=== PATIENT | female | born 1950 | race African-American/Black ===

== ENCOUNTER → 2016-12-11 | Outpatient (CLI) | payer OTHER ==
[~2016-12-11] MED LIST: ALLOPURINOL 10100 M1 PO; APAP/CODEINE ELI5 M1 OR; ASPIRIN EC81 M1 PO; CIPROFLOXACIN500 M1 PO; GLUCOPHAGE850 MG PO; LOSARTAN POTASS50 MG PO; SYNTHROID100 MCG; VITAMIN D-32000 UNIT PO; ZOCOR 20 MG TAB20 M1 PO; [UNRECOGNIZED DRUG - REMARK]
== END ==
LOC: BC 08:25
DX: R92.0 Mammographic microcalcification found on diagnostic imaging of breast (principal)

== ENCOUNTER → 2016-12-19 | Outpatient (CLI) | payer OTHER ==
--- NOTE | ~2016-12-19 | S ---
[facility] [address] SURGICAL PATH RPT PROCEDURE Name: SAMI CASTRO Room #: REG [facility].#: [id number] Admission: 12/19/16 Date of : 46 Discharge: Report #: [id number] Path Case #: [id number] PATHOLOGY REPORT COLLECTION DATE: 12/19/2016 RECEIVED DATE: 12/19/2016 SUBMITTING PHYS: Dr. Thomas Ambrocio OTHER PHYS: Dr. Robby Call SPECIMEN(S) RECEIVED: A.Left central breast * * * * * * * * * * * * FINAL DIAGNOSIS: Breast, left central breast, needle core biopsy for calcifications: - Minute fibroadenoma associated with coarse calcifications. - Background breast tissue showing non-proliferative fibrocystic changes. - Negative for atypia or malignancy. COMMENT: Co-review: Dr. Nery Holland PATHOLOGIST: Liliane Ling M.D. REPORT ELECTRONICALLY SIGNED BY: Liliane Ling M.D. DATE/TIME: 12/21/2016 14:57 * * * * * * * * * * * * GROSS PATHOLOGY: The specimen is received in formalin labeled "Sami Castro, left breast," and additionally labeled on the requisition as, "left central". Received are multiple needle cores of yellow-marr fibrofatty tissue measuring 3.2 x 2.9 x 0.6 cm in aggregate dimensions. Also received is a plastic cassette containing multiple cores of yellow-marr fibrofatty tissue measuring 2.0 x 1.0 x 0.2 cm in aggregate dimensions. The tissue in the cassette is transferred to cassette A1, and the remaining tissue is submitted in its entirety in cassette A2 and A3. The cold ischemic time is 3 minutes. The total formalin fixation time is 32 hours and 34 minutes. (CAA; 12/20/2016) CLINICAL HISTORY: Calcifications INITIAL CPT CODE(S): [facility] [place] [address] SURGICAL PATH RPT PROCEDURE Name: SAMI CASTRO Room #: REG [facility]#: [id number] Admission: 12/19/16 Date of : 46 Discharge: Report #: [id number] Path Case #: [id number]; [id number] Professional services performed by [facility] at [address] , [place] [address] Technical services performed by [facility] at [address] [place] [address], [place] [address]. [facility] [address] [place] [address] PHONE: [phone] DIRECTOR: Mo Llamas M.D. * * * END OF REPORT * * *
== END | disposition home or self-care (01) ==
LOC: RAD 01:37
DX: D24.2 Benign neoplasm of left breast (principal)

== ENCOUNTER → 2017-05-31 | Outpatient (CLI) | payer OTHER | LOC: RAD 00:10 | DX: R92.8 Other abnormal and inconclusive findings on diagnostic imaging of breast (principal) ==

== ENCOUNTER 2018-02-07 23:07 | Emergency (ER) | payer OTHER ==
[~2018-02-07] VITALS: Ht 167.6 cm; Wt 122.9 kg
--- NOTE | ~2018-02-07 | EKG ---
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
[2018-02-07 23:57] LABS: URINE BILIRUBIN NEGATIVE (Negative); URINE BLOOD NEGATIVE (Negative); URINE CLARITY CLEAR; URINE COLOR YELLOW; URINE GLUCOSE-RANDOM* NEGATIVE (Negative); URINE KETONES NEGATIVE (Negative); URINE LEUKOCYTES-REFLEX NEGATIVE (Negative); URINE NITRITE-REFLEX NEGATIVE (Negative); URINE PROTEIN (DIPSTICK) NEGATIVE (Negative); URINE SPECIFIC GRAVITY >= 1.030 (1.005-1.035); URINE UROBILINOGEN 0.2 E.U./dl (0.2-1.0)
[2018-02-08 00:12] LABS: BASOPHILS 1.5 % (0.0-2.0); EOSINOPHILS 4.5 % (0.0-3.0); HEMATOCRIT 34.9 % (37.0-47.0); HEMOGLOBIN 12.1 gm/dL (12.0-15.0); LYMPHOCYTES 42.9 % (24.0-44.0); MCH 32.1 pg (26.0-34.0); MCHC 34.6 g/dL (28.0-37.0); MCV 92.8 fL (80.0-100.0); MONOCYTES 7.3 % (1.0-8.0); PLATELET COUNT 202 thou/uL (150-400); POLYS 43.8 % (36.0-66.0); RBC 3.76 mil/uL (4.20-5.00); RDW 14.5 % (10.5-14.5); WBC 6.8 thou/uL (4.0-11.0)
[2018-02-08 00:21] LABS: ANION GAP 10 mmol/L (7-16); BUN 26 mg/dL (7-18); CALCIUM 9.2 mg/dL (8.5-10.1); CHLORIDE 108 mmol/L (98-107); CO2 25 mmol/L (21-32); CREATININE 1.7 mg/dL (0.6-1.0); GLUCOSE 237 mg/dL (74-106); POTASSIUM 3.7 mmol/L (3.5-5.1); SODIUM 143 mmol/L (136-145)
[2018-02-08 00:31] LABS: ALBUMIN 3.2 g/dL (3.4-5.0); LIPASE 79 U/L (73-393); SGOT 14 U/L (15-37); SGPT 17 U/L (30-65); TOTAL BILIRUBIN 0.2 mg/dL (<0.1-1.0); TOTAL PROTEIN 6.4 g/dL (6.4-8.2); TROPONIN-I <0.06 ng/mL (<0.06)
[2018-02-08] MEDS ORDERED: HYDROCODONE-AP1 EAC6 PO (03:08)
[2018-02-08] MEDS ORDERED: NAPROXEN375 MG PO (03:08)
[2018-02-08 03:33] VITALS: BP 140/87
== END 2018-02-08 04:17 | disposition home or self-care (01) ==
LOC: ER 23:07
PROVIDERS: Emergency Medicine
DX: R10.9 Unspecified abdominal pain (principal); I12.9 Hypertensive chronic kidney disease with stage 1 through stage 4 chronic kidney disease, or unspecified chronic kidney disease; E11.22 Type 2 diabetes mellitus with diabetic chronic kidney disease; N18.9 Chronic kidney disease, unspecified; M10.9 Gout, unspecified; E78.00 Pure hypercholesterolemia, unspecified; E03.9 Hypothyroidism, unspecified; F17.210 Nicotine dependence, cigarettes, uncomplicated; M48.061 Spinal stenosis, lumbar region without neurogenic claudication

== ENCOUNTER → 2018-06-03 | Outpatient (CLI) | payer OTHER ==
[~2018-06-03] MED LIST changes: +HYDROCODONE-AP1 EAC6 PO; +NAPROXEN375 MG PO
== END ==
LOC: RAD 01:17
DX: Z12.31 Encounter for screening mammogram for malignant neoplasm of breast (principal)

== ENCOUNTER 2018-07-21 21:24 | Emergency (ER) | payer OTHER ==
[~2018-07-21] VITALS: Ht 167.6 cm; Wt 116.1 kg
[2018-07-21] MEDS ORDERED: TRADJENTA5 MG (21:59)
[2018-07-21] MEDS ORDERED: HYDROCHLOROTHIA25 M2 PO (22:00)
[2018-07-21] MEDS ORDERED: MUCINEX600 MG PO (22:13)
[2018-07-21] MEDS ORDERED: FLONASE 0.05%50 MCG NASAL (22:13)
[2018-07-21 22:43] VITALS: BP 149/68
== END 2018-07-21 22:39 | disposition home or self-care (01) ==
LOC: ER 21:24
DX: J32.9 Chronic sinusitis, unspecified (principal); F17.210 Nicotine dependence, cigarettes, uncomplicated; E11.9 Type 2 diabetes mellitus without complications; I10 Essential (primary) hypertension; M10.9 Gout, unspecified; E78.00 Pure hypercholesterolemia, unspecified; E03.9 Hypothyroidism, unspecified

== ENCOUNTER → 2019-06-03 | Outpatient (CLI) | payer OTHER ==
[~2019-06-03] MED LIST changes: +FLONASE 0.05%50 MCG NASAL; +HYDROCHLOROTHIA25 M2 PO; +MUCINEX600 MG PO; +TRADJENTA5 MG
== END ==
LOC: RAD 08:49
DX: Z12.31 Encounter for screening mammogram for malignant neoplasm of breast (principal)

== ENCOUNTER → 2020-06-07 | Outpatient (CLI) | payer OTHER | LOC: BC 07:56 | PROVIDERS: ATTEND Internal Medicine | DX: Z12.31 Encounter for screening mammogram for malignant neoplasm of breast (principal) ==

== ENCOUNTER → 2020-06-25 | Outpatient (CLI) | payer OTHER | LOC: LAB 09:54 | PROVIDERS: ATTEND Student in an Organized Health Care Education/Training Program | DX: Z01.812 Encounter for preprocedural laboratory examination (principal); Z20.828 Contact with and (suspected) exposure to other viral communicable diseases ==

== ENCOUNTER 2020-06-30 08:08 | Day surgery (SDC) | payer OTHER ==
--- NOTE | 2020-06-29 12:52 | H ---
[facility] [place] [address] HISTORY AND PHYSICAL Name: LYNN CASTRO Room #: [facility].#: [id number] Admission: Attend Phys: Sanjeev Bravo, Discharge: Date of : 46 Report #: [id number] THIS REPORT FOR: cc: NORM - Family physician unknown NORM - Family physician unknown Sanjeev Bravo MD ~ CC: [facility] unknown Sanjeev Bravo DATE OF SERVICE: 06/30/2020 Date of scheduled outpatient surgery is 06/30/2020. REASON FOR SURGERY: Postmenopausal bleeding. HISTORY OF PRESENT ILLNESS: This is a 69-year-old who had a recent onset of postmenopausal bleeding. She did undergo an ultrasound of her pelvis on 05/27/2020. Her uterus measured 12 cm in length. The endometrium measured 11 mm. She did have multiple uterine fibroids with the largest fibroid measuring 2.4 cm. Because of her postmenopausal bleeding and endometrium measuring 11 mm, we did discuss endometrial evaluation and after discussing all options, she has elected to proceed with further evaluation with an outpatient hysteroscopy and D and C. The procedure, risks, recovery and alternative options have been discussed with the patient. PAST MEDICAL HISTORY: She has had 3 vaginal deliveries. She has a history of diabetes, hypertension, elevated cholesterol, hypothyroidism and kidney disorder. PAST SURGICAL HISTORY: Previous surgeries include carpal tunnel release. She had a laparoscopy, she had an appendectomy and a tubal ligation. SOCIAL HISTORY: She is and retired, is a current smoker. FAMILY HISTORY: Positive for colon cancer, heart disease, diabetes, and hypertension. ALLERGIES: None. MEDICATIONS: Synthroid 0.8 mg daily, allopurinol 300 mg daily. She is on lovastatin 100 mg daily, metformin 500 mg daily, simvastatin 10 mg daily. She takes a daily aspirin. REVIEW OF SYSTEMS: Positive for the postmenopausal bleeding. She denies any fever or chills. No nausea, vomiting, no diarrhea, no dysuria, no chest pain or shortness of breath. [facility] [address] [place] [address] HISTORY AND PHYSICAL Name: LYNN CASTRO Room #: [facility]#: [id number] Admission: Attend Phys: Sanjeev Bravo, Discharge: Date of : 46 Report #: [id number] PHYSICAL EXAMINATION: GENERAL: She is 5 feet 6 inches with a weight of 266 pounds and a BMI of 42. VITAL SIGNS: Her blood pressure is 140/80 on exam. LUNGS: Clear. HEART: She had a regular rate and rhythm. NECK: Revealed no thyroid nodules, no supraclavicular adenopathy. ABDOMEN: Soft, nontender. No masses, rebound or guarding. On pelvic exam, there are no vulvar or vaginal lesions. She was noted to have some bleeding on exam in the office. Bimanual revealed an enlarged, irregular uterus consistent with fibroids. No adnexal masses detected. IMPRESSION: Postmenopausal bleeding with endometrial thickening on pelvic ultrasound with uterine fibroids with a history of diabetes, hypertension, elevated cholesterol, hypothyroidism and kidney disease. At this time, after discussing all options for further evaluation, she is to proceed with a hysteroscopy and D and C. Again, the procedure, risks, and recovery have been discussed with the patient. <ELECTRONICALLY SIGNED> By: Sanjeev Bravo MD 06/29/20 1252 1545 1612 Sanjeev Bravo MD /nt
[~2020-06-30] VITALS: Ht 170.2 cm; Wt 121.1 kg
[~2020-06-30 08:08] MED LIST changes: +ALLOPURINOL 30300 M1 PO; +CHLORTHALIDONE25 MG PO; +COZAAR100 MG PO; +FARXIGA10 MG PO; +NORVASC5 M1 PO; +TIROSINT88 MCG PO; -VITAMIN D-32000 UNIT PO; +VITAMIN D350 MCG PO; +ZOCOR 10 MG TAB10 MG PO
[2020-06-30 08:54] VITALS: BP 126/58
--- NOTE | 2020-06-30 14:38 | EKG ---
[facility] [place] [address] ELECTROCARDIOGRAM REPORT Name: LYNN CASTRO Room #: 150-6 [facility]..#: [id number] Admission: 06/30/20 Attend Phys: Sanjeev Bravo, Discharge: Date of : 46 Report #: [id number] THIS REPORT FOR: cc: Robby Call Theodore M. 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 : 1950 Requested By: Sanjeev Bravo Order Number: [id number] MD: Stefan Mobley Measurements Intervals [place] Rate: 53 P: 20 W[place]: 140 QRS: -32 QRSD: 115 T: 21 QT: 478 QTc: 449 Interpretive Statements Sinus rhythm Nonspecific intraventricular conduction delay Compared to ECG 02/08/2018 00:04:04 Sinus bradycardia no longer present Electronically Signed On 06-30-2020 14:37:58 [employer]IN[employer] by Stefan Mobley [email or web address] <ELECTRONICALLY SIGNED> By: Stefan Mobley MD, FACC 06/30/20 1437 0847 0847 Stefan Mobley MD, [facility] /EPI
--- NOTE | 2020-07-02 17:05 | O ---
[facility] [place] [address] OPERATIVE REPORT Name: LYNN CASTRO Room #: DEP [facility]#: [id number] Admission: 06/30/20 Attend Phys: Sanjeev Bravo, Discharge: 06/30/20 Date of : 46 Report #: [id number] THIS REPORT FOR: cc: Robby Call,Sanjeev Monahan MD ~ CC: Sanjeev Call DATE OF SERVICE: 06/30/2020 PREOPERATIVE DIAGNOSES: Postmenopausal bleeding with evidence of endometrial thickening on pelvic ultrasound. POSTOPERATIVE DIAGNOSES: Postmenopausal bleeding with evidence of endometrial thickening on pelvic ultrasound with finding of 3 endometrial polyps. PROCEDURE DONE: Hysteroscopy and D and C with MyoSure removal of 3 endometrial polyps. SURGEON: Sanjeev Bravo MD ANESTHESIA: General. COMPLICATIONS: None. BLOOD LOSS: 5 mL. DESCRIPTION OF OPERATION: The patient was taken to the operating room and given adequate anesthesia. She was placed in the stirrups. She was prepped, her bladder was drained and she was draped. A timeout was performed. At this point, the weighted speculum placed in the posterior vagina. The anterior lip of the cervix was identified and grasped with a tenaculum. Initially, an endocervical curettage was performed. The uterus sounded to 8.5 cm. Cervical os was then gently dilated to allow the small diagnostic hysteroscope to be passed. There was evidence of 3 endometrial polyps. No other abnormalities seen. At this point, the MyoSure instrument was inserted through the cervix and using the MyoSure the polyps were removed intact and removed completely down to the base. There was no bleeding. The MyoSure instrument was removed and thorough endometrial curettings throughout the endometrial cavity was performed. All tissue was sent to pathology. She was having no bleeding. Tenaculum removed from the cervix. There was just some slight spotting and it was treated with silver nitrate. There was excellent hemostasis. There were no other concerns. The weighted speculum removed. The sponge and instrument count were correct according to scrub nurse and circulating nurse. She had no [facility] [address] [place] [address] OPERATIVE REPORT Name: LYNN CASTRO Room #: [facility].#: [id number] Admission: 06/30/20 Attend Phys: Sanjeev Bravo, Discharge: 06/30/20 Date of : 46 Report #: [id number] complications. She was placed back in the supine position. It should be noted she did have compression boots applied throughout the case. She was taken to the recovery room in stable condition. <ELECTRONICALLY SIGNED> By: Sanjeev Bravo MD 07/02/20 1705 1101 1114 Sanjeev Bravo MD /nt
--- NOTE | 2020-07-05 15:07 | PATH ---
[facility] [place] [address] [place] [address] PATHOLOGY RPT PROCEDURE Name: SAMI CASTRO Room #: DEP [facility]..#: [id number] Admission: 06/30/20 Date of : 46 Discharge: 06/30/20 Report #: [id number] Path Case #: [id number] [facility] Accession Number: [id number] . 01 Material submitted: . PART A: endocervix - ENDOCERVICAL CURETTINGS PART B: endometrium - ENDOMETRIAL CURETTINGS PART C: endometrium - ENDOMETRIAL POLYP . 01 Clinical history: . POSTMENOPAUSAL BLEEDING . 02 Diagnosis: A. Cervix, endocervical curettings: - Strips and fragments of benign endocervical as well as ectocervical epithelium with reactive changes. - No definite dysplasia or malignancy identified. . B. Uterus, endometrial curettings: - Fragments of inactive (atrophic) endometrium with tubal metaplasia. - More than 50% of the specimen comprised of ectocervical epithelial fragments with no definitive dysplasia. . C. Endometrial polyp, biopsy: - Fragments of a benign endometrial polyp associated with simple and focal complex hyperplasia associated with tubal metaplasia. - Negative for malignancy. (IUV:cecy; 07/02/2020) QMS 07/02/2020 1449 [facility] . 02 Electronically signed: . Liliane Ling MD, Pathologist NPI- [id number] . 01 Gross description: . A. Received in formalin labeled "Arsenio Castrooach, endocervical curettings" is a 2.2 x 0.5 x 0.1 cm aggregate of minute hugo-red soft tissue fragments and mucinous material. The specimen is submitted entirely in A1. . B. Received in formalin labeled "Sami Castro, endometrial curettings" is a 1.4 x 0.5 x 0.1 cm aggregate of red-brown friable soft tissue fragments. The specimen is submitted entirely in B1. . C. Received in formalin labeled "Sami Castro, endometrial polyp" is a 2.5 x 2.5 x 0.3 cm aggregate of hugo-brown rubbery soft tissue fragments. The specimen is submitted entirely in C1. ([facility] [place]; 07/01/2020) [address] [address] PATHOLOGY RPT PROCEDURE Name: SAMI CASTRO G Room #: [facility].#: [id number] Admission: 06/30/20 Date of : 46 Discharge: 06/30/20 Report #: [id number] Path Case #: [id number] SYC/SYC 07/01/2020 1950 Local . 02 Pathologist provided ICD-10: N85.8, N84.0, N95.0 . 02 CPT . 582764, 614776, 193195 Specimen Comment: A courtesy copy of this report has been sent to [phone] Specimen Comment: [phone], Specimen Comment: Report sent to ,DR PENA / DR EDWARDS Specimen Comment: A duplicate report has been generated due to demographic updates. Performed at: [address] [facility], [place] [id number] MD Mike Torre MD Phone: [phone] Performed at: [address] [id number] MD Liliane Ling MD Phone: [phone]
== END 2020-06-30 12:45 | disposition home or self-care (01) ==
LOC: OR 08:08 → TBA 11:10 → OR 11:50 → TBA 12:15 → OR 12:45
PROVIDERS: ATTEND Obstetrics & Gynecology
DX: N95.0 Postmenopausal bleeding (principal); N84.0 Polyp of corpus uteri; R93.89 Abnormal findings on diagnostic imaging of other specified body structures; I10 Essential (primary) hypertension; E78.00 Pure hypercholesterolemia, unspecified; E11.9 Type 2 diabetes mellitus without complications; E03.9 Hypothyroidism, unspecified; Z98.890 Other specified postprocedural states; Z79.899 Other long term (current) drug therapy; Z98.51 Tubal ligation status; Z90.49 Acquired absence of other specified parts of digestive tract; Z80.0 Family history of malignant neoplasm of digestive organs; Z83.3 Family history of diabetes mellitus; Z82.49 Family history of ischemic heart disease and other diseases of the circulatory system
CPT/HCPCS: 50010; 50101; 54171; 54172; 54173; 62110; 62900; 70005

== ENCOUNTER 2020-10-22 10:24 | Emergency (ER) | payer OTHER ==
[~2020-10-22] VITALS: Ht 167.6 cm; Wt 114.3 kg
[2020-10-22] MEDS ORDERED: NORCO5 PO (11:57)
[2020-10-22 12:10] VITALS: BP 148/78
== END 2020-10-22 12:10 | disposition home or self-care (01) ==
LOC: ER 10:24
DX: M25.512 Pain in left shoulder (principal); E78.5 Hyperlipidemia, unspecified; E03.9 Hypothyroidism, unspecified; M10.9 Gout, unspecified; E11.22 Type 2 diabetes mellitus with diabetic chronic kidney disease; I12.9 Hypertensive chronic kidney disease with stage 1 through stage 4 chronic kidney disease, or unspecified chronic kidney disease; N18.9 Chronic kidney disease, unspecified; F17.210 Nicotine dependence, cigarettes, uncomplicated; Z79.82 Long term (current) use of aspirin; Z79.899 Other long term (current) drug therapy

== ENCOUNTER → 2021-06-10 | Outpatient (CLI) | payer OTHER ==
[~2021-06-10] MED LIST changes: +NORCO5 PO
== END ==
LOC: RAD 08:21
PROVIDERS: ATTEND Internal Medicine
DX: Z12.31 Encounter for screening mammogram for malignant neoplasm of breast (principal)